=== PATIENT | male | born 1955 | race African-American/Black ===

== ENCOUNTER 2023-05-18 08:58 | Day surgery (SDC) | payer OTHER ==
[2023-05-18 09:29] VITALS: BMI 37.2
[2023-05-18] MEDS ORDERED: valACYclovir HCL 500 MG TABLET (FP) PO ONE (09:52)
[2023-05-18] MEDS ORDERED: SODIUM CHLORIDE 0.9% 1000 ML INFUS.BAG IV ONE (09:53)
[2023-05-18] MEDS ORDERED: ACETAMINOPHEN 500 MG TABLET (FP) PO ONE (09:53)
[2023-05-18 09:54] LABS: EPITHELIAL CELLS FEW /hpf
[2023-05-18] MEDS ORDERED: PIPERACILLIN/TAZOB 4.5 GM 4.5 GM in DEXTROSE 5%-WATER 100 ML IVPB ONE (09:55)
[2023-05-18] MEDS ORDERED: CEFTRIAXONE 1 GM in DEXTROSE 5%-WATER - 100 ML IVPB ONE (09:55)
[2023-05-18] MEDS ORDERED: valACYclovir HCL 500 MG TABLET (FP) ONE (09:57)
[2023-05-18] MEDS ORDERED: ACETAMINOPHEN 500 MG TABLET (FP) ONE (09:57)
[2023-05-18] MEDS ORDERED: cefTRIAXone SODIUM 1 GM VIAL ONE (09:57)
[2023-05-18 11:01] LABS: HEMATOCRIT 33.7 % (35.4-49); HEMOGLOBIN 10.7 G/dL (11.7-16.9); MCH 23.6 pg (25.7-33.7); MCHC 31.7 g/dl (32.0-35.9); MEAN CELL VOLUME 74.4 fl (80-96); MEAN PLT VOLUME 8.5 fl (7.5-11.1); PLATELET COUNT 250.7 10^3/uL (134-434); RBC 4.53 10^6/uL (4.00-5.60); RDW 20.3 % (11.9-15.9); WHITE BLOOD COUNT 6.1 10^3/uL (4.0-10.8)
[2023-05-18 11:02] LABS: INR 1.21 (0.83-1.09)
[2023-05-18 11:05] LABS: ACTIVATED PTT 28.4 SECONDS (25.2-36.5)
[2023-05-18 11:28] LABS: ALBUMIN 3.7 g/dl (3.4-5.0); BILIRUBIN,TOTAL 0.6 mg/dl (0.2-1); BLOOD UREA NITROGEN 20.1 mg/dl (7-18); CALCIUM 8.9 mg/dl (8.5-10.1); CREATININE 1.2 mg/dl (0.6-1.3); POTASSIUM 3.6 mmol/L (3.5-5.1); SGOT/AST 14.2 U/L (15-37); SGPT/ALT 9.3 U/L (7-52)
[2023-05-18] MEDS ORDERED: TAMSULOSIN HCL 0.4 MG CAP PO ONE (11:40)
[2023-05-18 12:06] LABS: ANISOCYTOSIS 1+; TARGET CELLS 1+; TEAR DROP CELLS 1+
[2023-05-18 12:07] LABS: OVALOCYTE 2+; PLATELET ESTIMATE ADEQUATE
[2023-05-18] MEDS ORDERED: TAMSULOSIN HCL 0.4 MG CAP ONE (13:28)
[2023-05-18] MEDS ORDERED: ONDANSETRON 4 MG/2 ML VIAL IVPUSH PRN (13:49)
[2023-05-18] MEDS ORDERED: PROPOFOL 40 ML ONE (14:27)
[2023-05-18] MEDS ORDERED: SUCCINYLCHOLINE CHLORIDE 200 MG/10 ML SYRINGE ONE (14:30)
[2023-05-18] MEDS ORDERED: BENZOIN/ALOE VERA/STORAX/TOLU 58 ML BOTTLE ONE (14:50)
[2023-05-18] MEDS: valACYclovir HCL 500 MG TABLET (FP) PO SCH (19:02)
[2023-05-18] MEDS: FINASTERIDE 5 MG TABLET (FP) PO SCH (21:25)
[2023-05-18] MEDS: LACTATED RINGERS SOLUTION 1,000 ML IV SCH (21:27)
[2023-05-18] MEDS: oxyCODONE HCL 5 MG TABLET PO PRN (22:01)
[2023-05-19] MEDS: valACYclovir HCL 500 MG TABLET (FP) PO SCH ×3 (03:18→19:24)
[2023-05-19] MEDS: oxyCODONE HCL 5 MG TABLET PO PRN (07:00)
[2023-05-19 09:09] LABS: ALBUMIN 3.4 g/dl (3.4-5.0); BILIRUBIN,TOTAL 0.3 mg/dl (0.2-1); CALCIUM 8.5 mg/dl (8.5-10.1); CREATININE 1.1 mg/dl (0.6-1.3); PHOSPHOROUS 3.47 (2.5-4.9); POTASSIUM 3.8 mmol/L (3.5-5.1); SGOT/AST 11.8 U/L (15-37); SGPT/ALT 7.9 U/L (7-52); TOT PROT 7.2 g/dl (6.4-8.2)
[2023-05-19] MEDS ORDERED: amLODIPine BESYLATE 10 MG TABLET (FP) PO SCH (10:00)
[2023-05-19] MEDS: amLODIPine BESYLATE 10 MG TABLET (FP) PO SCH (10:05)
[2023-05-19] MEDS: LOSARTAN POTASSIUM 50 MG TABLET PO SCH (10:05)
[2023-05-19] MEDS: CEFTRIAXONE 1 GM in DEXTROSE 5%-WATER - 50 ML IVPB SCH (10:06)
[2023-05-19 10:12] LABS: BASO % 0.3 % (0-2.0); EOS % 1.1 % (0-4.5); HEMATOCRIT 31.2 % (35.4-49); HEMOGLOBIN 9.9 GM/dL (11.7-16.9); LYMPH % 26.4 % (8-40); MCH 22.9 pg (25.7-33.7); MCHC 31.8 g/dl (32.0-35.9); MEAN CELL VOLUME 72.2 fl (80-96); MEAN PLT VOLUME 8.1 fl (7.5-11.1); MONO % 11.3 % (3.8-10.2); NEUT % 60.9 % (42.8-82.8); PLATELET COUNT 303 10^3/uL (134-434); RBC 4.32 M/mm3 (4.00-5.60); RDW 19.2 % (11.9-15.9); WHITE BLOOD COUNT 5.9 K/mm3 (4.0-10.0)
[2023-05-19] MEDS: FERROUS SO4 300 MG/5 ML ORAL SOLN UNIT DOSE CUPS PO SCH (12:21)
[2023-05-19 14:50] VITALS: RESP 18
[2023-05-19] MEDS ORDERED: ACETAMINOPHEN 325 MG TABLET (FP) PO PRN (15:01)
[2023-05-19] MEDS: GABAPENTIN 100 MG CAPSULE PO SCH ×2 (15:17→21:25)
[2023-05-19] MEDS: LACTATED RINGERS SOLUTION 1,000 ML IV SCH (15:18)
[2023-05-19] MEDS: FINASTERIDE 5 MG TABLET (FP) PO SCH (21:25)
[2023-05-20] MEDS: valACYclovir HCL 500 MG TABLET (FP) PO SCH ×2 (03:13→09:41)
[2023-05-20] MEDS: GABAPENTIN 100 MG CAPSULE PO SCH (05:57)
[2023-05-20 06:30] VITALS: TEMP 98.7
[2023-05-20 08:15] LABS: ALBUMIN 3.2 g/dl (3.4-5.0); BILIRUBIN,TOTAL 0.3 mg/dl (0.2-1); BLOOD UREA NITROGEN 14.8 mg/dl (7-18); CALCIUM 8.4 mg/dl (8.5-10.1); CREATININE 1.1 mg/dl (0.6-1.3); SGOT/AST 11.3 U/L (15-37); TOT PROT 6.8 g/dl (6.4-8.2)
[2023-05-20 09:02] LABS: BASO % 0.5 % (0-2.0); EOS % 3.6 % (0-4.5); HEMOGLOBIN 9.5 GM/dL (11.7-16.9); LYMPH % 35.1 % (8-40); MCH 22.9 pg (25.7-33.7); MCHC 31.7 g/dl (32.0-35.9); MEAN CELL VOLUME 72.4 fl (80-96); MEAN PLT VOLUME 7.8 fl (7.5-11.1); MONO % 12.4 % (3.8-10.2); NEUT % 48.4 % (42.8-82.8); PLATELET COUNT 333 10^3/uL (134-434); RBC 4.14 M/mm3 (4.00-5.60); RDW 19.2 % (11.9-15.9); WHITE BLOOD COUNT 5.9 K/mm3 (4.0-10.0)
[2023-05-20] MEDS: CEFTRIAXONE 1 GM in DEXTROSE 5%-WATER - 50 ML IVPB SCH (09:40)
[2023-05-20] MEDS: amLODIPine BESYLATE 10 MG TABLET (FP) PO SCH (09:41)
[2023-05-20] MEDS: FERROUS SO4 300 MG/5 ML ORAL SOLN UNIT DOSE CUPS PO SCH (09:41)
[2023-05-20] MEDS: LOSARTAN POTASSIUM 50 MG TABLET PO SCH (09:41)
[2023-05-20 11:30] VITALS: BP 133/80; PULSE 90
== END 2023-05-20 14:27 | disposition home or self-care (01) ==
LOC: FER 08:58 → UNDOADMOB 12:11 → FM/S 12:11 → FASU 13:41 → SUATTDRO 13:41 → FM/S 13:43 → FASU 05-20 14:27
PROC: 0T9780Z Drainage of Left Ureter with Drainage Device, Via Natural or Artificial Opening Endoscopic (ICD-10-PCS; principal; 2023-05-18 14:53)
DX: N20.1 Calculus of ureter (principal); N39.0 Urinary tract infection, site not specified; N13.30 Unspecified hydronephrosis
CPT/HCPCS: 36415; 74176-TC; 76000-TC-FY; 80053; 81003; 81015; 83036; 83735; 84100; 84439; 84443; 85025; 85027; 85610; 85730; 86850; 86900; 86901; 87086; 87186; 93005; 94760; 97116-GP; 97162-GP; 99285-25; C1769; C2617

== ENCOUNTER 2023-06-26 07:42 | Inpatient (IN) | payer OTHER ==
[2023-06-26] MEDS ORDERED: SODIUM CHLORIDE 1,000 ML IV STA ×2 (07:53→09:14)
[2023-06-26] MEDS ORDERED: ACETAMINOPHEN 1000 MG/100 ML BAG IVPB ONE (07:53)
[2023-06-26] MEDS ORDERED: ACETAMINOPHEN INJECTION 100 ML IVPB ONE (08:14)
[2023-06-26 08:55] LABS: INR 1.33 (0.83-1.09); PROTHROMBIN TIME (PATIENT) 15.4 SEC (9.7-13.0)
[2023-06-26 08:58] LABS: HEMATOCRIT 30.9 % (35.4-49); HEMOGLOBIN 9.7 G/dL (11.7-16.9); MCH 23.4 pg (25.7-33.7); MCHC 31.4 g/dl (32.0-35.9); MEAN CELL VOLUME 74.6 fl (80-96); MEAN PLT VOLUME 8.5 fl (7.5-11.1); PLATELET COUNT 276.1 10^3/uL (134-434); RBC 4.14 10^6/uL (4.00-5.60); RDW 21.2 % (11.9-15.9); WHITE BLOOD COUNT 21.9 10^3/uL (4.0-10.8)
[2023-06-26 09:08] LABS: ALBUMIN 3.4 g/dl (3.4-5.0); BILIRUBIN,TOTAL 0.9 mg/dl (0.2-1); CALCIUM 8.9 mg/dl (8.5-10.1); CREATININE 1.8 mg/dl (0.6-1.3); POTASSIUM 3.8 mmol/L (3.5-5.1); TOT PROT 7.5 g/dl (6.4-8.2)
[2023-06-26 09:16] LABS: PLATELET ESTIMATE ADEQUATE
[2023-06-26] MEDS ORDERED: CEFTRIAXONE 1,000 MG in DEXTROSE 5%-WATER - 50 ML IVPB ONE (09:32)
[2023-06-26] MEDS ORDERED: cefTRIAXone SODIUM 1 GM VIAL ONE (09:36)
[2023-06-26] MEDS ORDERED: WATER FOR INJ,STERILE 10 ML ONE (09:38)
[2023-06-26 09:43] LABS: EPITHELIAL CELLS 0-5 /hpf
[2023-06-26 10:22] LABS: VENOUS BASE EXCESS -0.4 mmol/L (-2-2); VENOUS O2 SATURATION 25.9 % (70-80); VENOUS PH 7.364 (7.310-7.410)
[2023-06-26 10:46] LABS: LACTIC ACID 2.4 mmol/L (0.4-2.0)
[2023-06-26] MEDS ORDERED: ACETAMINOPHEN 325 MG TABLET (FP) PO PRN (11:51)
[2023-06-26] MEDS ORDERED: ARTIFICIAL TEARS (POLYVINYL ALCOHOL) OPTH DROPS OU PRN (11:52)
[2023-06-26] MEDS ORDERED: LACTATED RINGERS SOLUTION 1,000 ML/1,000 ML INFUS.BAG IV SCH (12:00)
[2023-06-26 12:39] VITALS: BMI 25.0
[2023-06-26] MEDS ORDERED: HYDROmorphone HCL 2 MG TABLET PO PRN (14:17)
[2023-06-26] MEDS ORDERED: HYDROmorphone HCL/PF 1 MG/ML VIAL IVPUSH PRN (14:17)
[2023-06-26] MEDS: LIDOCAINE 5% TOPICAL PATCH TP SCH (14:36)
[2023-06-26] MEDS: traMADol HCL 50 MG TABLET PO PRN (14:36)
[2023-06-26 15:44] LABS: CALCIUM 8.2 mg/dl (8.5-10.1); CREATININE 1.6 mg/dl (0.6-1.3); POTASSIUM 3.7 mmol/L (3.5-5.1)
[2023-06-26] MEDS: ACETAMINOPHEN 325 MG TABLET (FP) PO PRN (16:50)
[2023-06-26] MEDS ORDERED: PIPERACILLIN/TAZOB 4.5 GM 4.5 GM in DEXTROSE 5%-WATER 100 ML IVPB ONE (18:57)
[2023-06-26] MEDS ORDERED: VANCOMYCIN/WATER FOR INJ (PEG) 1,000 MG/200 ML BAG IVPB ONE (19:15)
[2023-06-26] MEDS: GABAPENTIN 100 MG CAPSULE PO SCH (22:29)
[2023-06-26] MEDS: FINASTERIDE 5 MG TABLET (FP) PO SCH (22:29)
[2023-06-26] MEDS: HEPARIN NA (PORCINE) 5,000 UNITS/ML 1ML VIAL SQ SCH (22:29)
[2023-06-26] MEDS: LIDOCAINE PATCH REMOVAL MC SCH (22:30)
[2023-06-27] MEDS: ACETAMINOPHEN 325 MG TABLET (FP) PO PRN ×3 (02:11→17:17)
[2023-06-27] MEDS: TAMSULOSIN HCL 0.4 MG CAP PO SCH (08:21)
[2023-06-27] MEDS: LACTATED RINGERS SOLUTION 1,000 ML/1,000 ML INFUS.BAG IV SCH (08:21)
[2023-06-27 08:33] LABS: HEMATOCRIT 26.8 % (35.4-49); HEMOGLOBIN 8.4 G/dL (11.7-16.9); MCH 23.5 pg (25.7-33.7); MCHC 31.2 g/dl (32.0-35.9); MEAN CELL VOLUME 75.2 fl (80-96); MEAN PLT VOLUME 9.4 fl (7.5-11.1); PLATELET COUNT 276.2 10^3/uL (134-434); RBC 3.56 10^6/uL (4.00-5.60); WHITE BLOOD COUNT 20.1 10^3/uL (4.0-10.8)
[2023-06-27 08:50] LABS: ALBUMIN 2.9 g/dl (3.4-5.0); BILIRUBIN,TOTAL 0.6 mg/dl (0.2-1); CALCIUM 8.8 mg/dl (8.5-10.1); CREATININE 1.5 mg/dl (0.6-1.3); PHOSPHOROUS 2.8 (2.5-4.9); POTASSIUM 4.2 mmol/L (3.5-5.1); TOT PROT 6.6 g/dl (6.4-8.2)
[2023-06-27] MEDS ORDERED: PIPERACILLIN/TAZOB 4.5 GM 4.5 GM in DEXTROSE 5%-WATER 100 ML IVPB SCH (09:00)
[2023-06-27] MEDS ORDERED: CEFTRIAXONE 1 GM in DEXTROSE 5%-WATER - 50 ML IVPB SCH (10:00)
[2023-06-27] MEDS ORDERED: LOSARTAN POTASSIUM 50 MG TABLET PO SCH (10:00)
[2023-06-27] MEDS ORDERED: ENOXAPARIN NA (PORCINE) 40 MG/0.4 ML DISP.SYRIN SQ SCH (10:00)
[2023-06-27] MEDS: amLODIPine BESYLATE 10 MG TABLET (FP) PO SCH (10:23)
[2023-06-27] MEDS: LACTOBACILLUS ACIDOPHILUS 1 TABLET PO SCH (10:23)
[2023-06-27] MEDS: ASPIRIN 81 MG CHEWABLE TABLETS PO SCH (10:23)
[2023-06-27] MEDS: HEPARIN NA (PORCINE) 5,000 UNITS/ML 1ML VIAL SQ SCH ×2 (10:24→22:04)
[2023-06-27] MEDS: LIDOCAINE 5% TOPICAL PATCH TP SCH (10:24)
[2023-06-27] MEDS: CEFEPIME 2 GM in DEXTROSE 5%-WATER 100 ML IVPB SCH ×2 (10:25→17:17)
[2023-06-27] MEDS: FERROUS SO4 325 MG TABLET (FP) PO SCH (11:54)
[2023-06-27] MEDS: FINASTERIDE 5 MG TABLET (FP) PO SCH (22:04)
[2023-06-27] MEDS: GABAPENTIN 100 MG CAPSULE PO SCH (22:04)
[2023-06-27] MEDS: LIDOCAINE PATCH REMOVAL MC SCH (22:04)
[2023-06-28] MEDS: CEFEPIME 2 GM in DEXTROSE 5%-WATER 100 ML IVPB SCH ×3 (01:06→17:04)
[2023-06-28] MEDS: traMADol HCL 50 MG TABLET PO PRN (01:14)
[2023-06-28 07:58] LABS: HEMATOCRIT 26.3 % (35.4-49); HEMOGLOBIN 8.4 G/dL (11.7-16.9); MCH 23.5 pg (25.7-33.7); MCHC 31.8 g/dl (32.0-35.9); MEAN PLT VOLUME 8.4 fl (7.5-11.1); PLATELET COUNT 279.8 10^3/uL (134-434); RBC 3.55 10^6/uL (4.00-5.60); RDW 21.4 % (11.9-15.9); WHITE BLOOD COUNT 13.1 10^3/uL (4.0-10.8)
[2023-06-28] MEDS: TAMSULOSIN HCL 0.4 MG CAP PO SCH (08:15)
[2023-06-28] MEDS: LACTATED RINGERS SOLUTION 1,000 ML/1,000 ML INFUS.BAG IV SCH (08:15)
[2023-06-28] MEDS ORDERED: traMADol HCL 50 MG TABLET PO PRN (08:51)
[2023-06-28 09:05] LABS: CALCIUM 8.7 mg/dl (8.5-10.1); CREATININE 1.2 mg/dl (0.6-1.3); MAGNESIUM 1.9 mg/dL (1.8-2.4); PHOSPHOROUS 2.5 (2.5-4.9); POTASSIUM 4.3 mmol/L (3.5-5.1)
[2023-06-28] MEDS: ASPIRIN 81 MG CHEWABLE TABLETS PO SCH (09:27)
[2023-06-28] MEDS: LACTOBACILLUS ACIDOPHILUS 1 TABLET PO SCH (09:27)
[2023-06-28] MEDS: amLODIPine BESYLATE 10 MG TABLET (FP) PO SCH (09:27)
[2023-06-28] MEDS: HEPARIN NA (PORCINE) 5,000 UNITS/ML 1ML VIAL SQ SCH (09:27)
[2023-06-28] MEDS: LIDOCAINE 5% TOPICAL PATCH TP SCH (09:28)
[2023-06-28] MEDS: ACETAMINOPHEN 325 MG TABLET (FP) PO PRN ×2 (09:29→17:13)
[2023-06-28] MEDS ORDERED: ENOXAPARIN NA (PORCINE) 40 MG/0.4 ML DISP.SYRIN SQ SCH (10:00)
[2023-06-28] MEDS: FERROUS SO4 325 MG TABLET (FP) PO SCH (12:30)
[2023-06-28] MEDS: LIDOCAINE PATCH REMOVAL MC SCH (21:24)
[2023-06-28] MEDS: GABAPENTIN 100 MG CAPSULE PO SCH (21:24)
[2023-06-28] MEDS: FINASTERIDE 5 MG TABLET (FP) PO SCH (21:24)
[2023-06-28] MEDS ORDERED: HEPARIN NA (PORCINE) 5,000 UNITS/ML 1ML VIAL SQ SCH (22:00)
[2023-06-29] MEDS: CEFEPIME 2 GM in DEXTROSE 5%-WATER 100 ML IVPB SCH ×2 (01:26→09:34)
[2023-06-29 02:05] VITALS: PULSE 83
[2023-06-29 05:50] VITALS: RESP 16
[2023-06-29] MEDS: GABAPENTIN 100 MG CAPSULE PO SCH ×2 (08:15→14:28)
[2023-06-29 08:21] LABS: HEMATOCRIT 27.3 % (35.4-49); HEMOGLOBIN 8.5 G/dL (11.7-16.9); MEAN CELL VOLUME 74.3 fl (80-96); MEAN PLT VOLUME 9.8 fl (7.5-11.1); PLATELET COUNT 382.7 10^3/uL (134-434); RBC 3.67 10^6/uL (4.00-5.60); RDW 20.4 % (11.9-15.9); WHITE BLOOD COUNT 7.8 10^3/uL (4.0-10.8)
[2023-06-29 08:58] LABS: CALCIUM 8.8 mg/dl (8.5-10.1); POTASSIUM 3.6 mmol/L (3.5-5.1)
[2023-06-29] MEDS: TAMSULOSIN HCL 0.4 MG CAP PO SCH (09:00)
[2023-06-29] MEDS: LACTOBACILLUS ACIDOPHILUS 1 TABLET PO SCH (09:33)
[2023-06-29] MEDS: ASPIRIN 81 MG CHEWABLE TABLETS PO SCH (09:33)
[2023-06-29] MEDS: amLODIPine BESYLATE 10 MG TABLET (FP) PO SCH (09:33)
[2023-06-29] MEDS: LIDOCAINE 5% TOPICAL PATCH TP SCH (09:34)
[2023-06-29] MEDS ORDERED: ENOXAPARIN NA (PORCINE) 40 MG/0.4 ML DISP.SYRIN SQ SCH (10:00)
[2023-06-29 10:05] VITALS: BP 133/83; TEMP 99.6
[2023-06-29] MEDS: FERROUS SO4 325 MG TABLET (FP) PO SCH (12:50)
== END 2023-06-29 17:35 | disposition home or self-care (01) | DRG 872 ==
LOC: FER 07:42 → FM/S 11:00
PROVIDERS: ADMIT Internal Medicine; ATTEND Internal Medicine
DX: A41.52 Sepsis due to Pseudomonas (principal); N39.0 Urinary tract infection, site not specified; N13.2 Hydronephrosis with renal and ureteral calculous obstruction; N17.9 Acute kidney failure, unspecified; B02.29 Other postherpetic nervous system involvement; I10 Essential (primary) hypertension; E78.5 Hyperlipidemia, unspecified; B02.9 Zoster without complications
CPT/HCPCS: 0241U-QW; 36415; 71045-TC-FY; 74176-TC; 80048; 80053; 81003; 81015; 82550; 82553; 82803; 83605; 83735; 84100; 84484; 85027; 85610; 85730; 86850; 86900; 86901; 87040; 87086; 87186; 93005; 97116-GP; 97161-GP; 99285-25; G0480; J1644

== ENCOUNTER 2023-07-21 07:40 | Emergency (ER) | payer OTHER ==
[2023-07-21 08:31] VITALS: BP 149/96; PULSE 96; RESP 16; TEMP 99.2; BMI 24.3
== END 2023-07-21 08:41 | disposition home or self-care (01) ==
LOC: FER 07:40
DX: L72.9 Follicular cyst of the skin and subcutaneous tissue, unspecified (principal); L91.0 Hypertrophic scar
CPT/HCPCS: 99282-25